=== PATIENT | female | born 2000 | race Caucasian/White ===

== ENCOUNTER 2023-08-07 11:37 | Emergency (ER) | payer SELFPAY ==
[2023-08-07 11:51] VITALS: RESP 18; BMI 21.2
[2023-08-07 12:43] LABS: HCG,QUALITATIVE URINE Positive
[2023-08-07 12:44] LABS: BASO % 0.8 % (0-2.0); EOS % 1.5 % (0-4.5); HEMATOCRIT 34.4 % (32.4-45.2); HEMOGLOBIN 11.3 GM/dL (10.7-15.3); LYMPH % 21.2 % (8-40); MCHC 32.8 g/dl (32.0-36.0); MEAN CELL VOLUME 76.4 fl (80-96); MEAN PLT VOLUME 8.8 fl (7.5-11.1); MONO % 6.5 % (3.8-10.2); PLATELET COUNT 297 10^3/uL (134-434); RDW 16.9 % (11.6-15.6)
[2023-08-07 12:47] LABS: INR 1.01 (0.83-1.09); PROTHROMBIN TIME (PATIENT) 11.7 SEC (9.7-13.0)
[2023-08-07 12:49] LABS: ACTIVATED PTT 27.3 SECONDS (25.2-36.5); EPI CELLS >36 /uL (0-25.1); HYALINE CASTS 1 /uL (0-3.1); URINE APPEARANCE CLEAR; URINE BACTERIA >9,000 /uL (0-1359); URINE BILIRUBIN NEGATIVE (NEGATIVE); URINE COLOR YELLOW; URINE GLUCOSE (UA) NEGATIVE (NEGATIVE); URINE KETONE TRACE (NEGATIVE); URINE LEUK ESTERASE TRACE (NEGATIVE); URINE NITRITE POSITIVE (NEGATIVE); URINE PROTEIN NEGATIVE (NEGATIVE); URINE RBC 20 /uL (0-23.9); URINE UROBILINOGEN 0.2 mg/dL (0.2-1.0); URINE WBC 40 /uL (0-25.8)
[2023-08-07] MEDS ORDERED: CEPHALEXIN MONOHYDRATE 500 MG CAPSULE (UD) PO ONE (15:54)
[2023-08-07] MEDS ORDERED: CEPHALEXIN MONOHYDRATE 500 MG CAPSULE (UD) ONE (16:00)
[2023-08-07 16:28] VITALS: BP 98/67; PULSE 73; TEMP 98.1
== END 2023-08-07 17:14 | disposition home or self-care (01) ==
LOC: JERFT 11:37
DX: O20.9 Hemorrhage in early pregnancy, unspecified (principal); O26.891 Other specified pregnancy related conditions, first trimester; R10.9 Unspecified abdominal pain; O23.41 Unspecified infection of urinary tract in pregnancy, first trimester; N39.0 Urinary tract infection, site not specified; Z3A.01 Less than 8 weeks gestation of pregnancy
CPT/HCPCS: 36415; 76817-TC; 81003; 84702; 84703; 85025; 85610; 85730; 86850; 86900; 86901; 87086; 87186; 99284-25